=== PATIENT | female | born 1960 | race Caucasian/White ===

== ENCOUNTER 2021-05-31 08:44 | Day surgery (SDC) | payer BC, OTHER ==
[~2021-05-31] VITALS: Ht 160 cm; Wt 78.8 kg
[~2021-05-31 08:44] MED LIST: CALC400T6 PO; CITA20TA6 PO; DIAZ5TAB PO; DULO60CA56 PO; ESTROVEN ENER400 MCG PO; HYDR-2214 PO; HYDR-3248 PO; HYDR473S47 PO; LEVO112T41 PO; NAPR-685 PO; OXYC1TAB14 PO; OXYC5TAB98 PO; P EP PO; POTA1SOL4 PO; TRAZ150T62 PO; TRIA1CAP3 PO; [UNRECOGNIZED DRUG - OTHER] PO
[2021-05-31 09:50] VITALS: BP 101/67
[2021-05-31 10:01] LABS: BASOPHILS % (AUTO) 1 % (0-1); EOSINOPHILS % (AUTO) 3 % (1-7); LYMPHOCYTES % (AUTO) 41 % (22-44); MEAN CORPUSCULAR HEMOGLOBIN 32.2 pg (27.0-34.8); MEAN CORPUSCULAR HGB CONC 33.9 g/dL (32.4-35.8); MEAN PLATELET VOLUME 7.9 fL (7.4-10.4); MONOCYTES % (AUTO) 6 % (2-9); NEUTROPHILS % (AUTO) 49 % (42-75); PLATELET COUNT 232 x10^3/uL (130-400); RED BLOOD COUNT 4.27 x10^6/uL (3.82-5.3); RED CELL DISTRIBUTION WIDTH 13.3 % (9.6-15.2)
[2021-05-31 10:03] VITALS: BP 101/67
[2021-05-31] MEDS ORDERED: ATEN50TA41 PO (10:13)
[2021-05-31] MEDS ORDERED: LEVO88TA4 PO (10:13)
[2021-05-31] MEDS ORDERED: ESTR2TAB PO (10:13)
[2021-05-31] MEDS ORDERED: TRAZ50TA66 PO (10:13)
[2021-05-31] MEDS ORDERED: CHLORHEXIDINE 15 ML UDC ONE (10:27)
[2021-05-31] MEDS ORDERED: LACTATED RINGERS 1,000 ML IV SCH (10:30)
[2021-05-31] MEDS ORDERED: CHLORHEXIDINE 15 ML UDC PO ONE (10:30)
[2021-05-31] MEDS ORDERED: VANCOMYCIN 500 MG ONE (10:43)
[2021-05-31] MEDS ORDERED: LIDOCAINE/PF 1%-EPI 1:200K, 30 ML ONE (10:43)
[2021-05-31] MEDS ORDERED: GENTAMICIN 80 MG/2 ML ONE (10:43)
[2021-05-31] MEDS ORDERED: FENTANYL PF 100 MCG/2ML ONE ×2 (10:49→12:34)
[2021-05-31] MEDS ORDERED: MIDAZOLAM 1 MG/ML, 2ML ONE (10:49)
[2021-05-31] MEDS ORDERED: CEFAZOLIN 1,000 MG ONE (11:37)
[2021-05-31] MEDS ORDERED: ONDANSETRON 2MG/ML, 2ML ONE (11:37)
[2021-05-31] MEDS ORDERED: DEXAMETHASONE 4 MG/ML, 1ML ONE (11:37)
[2021-05-31] MEDS ORDERED: PROPOFOL 10 MG/ML, 20ML ONE (11:37)
[2021-05-31] MEDS ORDERED: ESTROGENS CONJUGATED VAG CRM 0.625MG/1G, 30GM ONE (12:04)
[2021-05-31] MEDS ORDERED: hydrALAzine 20 MG/ML, 1ML IV PRN (12:30)
[2021-05-31] MEDS ORDERED: HYDROmorphone 1 MG/ML, 1ML INJ IVPush PRN (12:30)
[2021-05-31] MEDS ORDERED: MEPERIDINE/PF 25MG/0.5ML IVPush PRN (12:30)
[2021-05-31] MEDS ORDERED: HALOPERIDOL 5 MG/ML IV PRN (12:30)
[2021-05-31] MEDS ORDERED: LORazepam 2 MG/ML, 1ML IVPush PRN (12:30)
[2021-05-31] MEDS ORDERED: ACETAMINOPHEN 325 MG TABLET PO PRN (12:30)
[2021-05-31] MEDS ORDERED: OXYcodone 5 MG/5 ML ORAL.SOL UDC PO PRN (12:30)
[2021-05-31] MEDS ORDERED: LABETALOL 5MG/ML, 20ML IV PRN (12:30)
[2021-05-31] MEDS ORDERED: PROMETHAZINE 25 MG/ML, 1ML IVPush PRN (12:30)
[2021-05-31] MEDS ORDERED: METHOCARBAMOL 1,000 MG in DEXTROSE 5% 100 ML IV PRN (12:30)
[2021-05-31] MEDS ORDERED: METOPROLOL 1 MG/ML, 5ML IV PRN (12:30)
[2021-05-31] MEDS ORDERED: PROMETHAZINE 25 MG SUPP PR PRN (12:30)
[2021-05-31] MEDS ORDERED: ONDANSETRON 2MG/ML, 2ML IVPush PRN (12:30)
[2021-05-31] MEDS: FENTANYL PF 100 MCG/2ML IV PRN ×3 (12:37→13:13)
[2021-05-31] MEDS ORDERED: OXYcodone 5 MG/5 ML ORAL.SOL UDC ONE (12:47)
[2021-05-31] MEDS ORDERED: ACETAMINOPHEN 650 MG/20.3 ML UDC PO PRN (13:00)
[2021-05-31] MEDS ORDERED: MEPERIDINE/PF 25MG/ML,1ML ONE (13:20)
[2021-05-31] MEDS ORDERED: KETOROLAC 30 MG/1 ML ONE (13:26)
[2021-05-31] MEDS ORDERED: KETOROLAC 30 MG/1 ML IVPush SCH (13:30)
== END 2021-05-31 15:40 | disposition home or self-care (01) ==
LOC: OUT 08:44
PROVIDERS: ATTEND Obstetrics & Gynecology Gynecology
DX: T83.711A Erosion of implanted vaginal mesh to surrounding organ or tissue, initial encounter (principal); I10 Essential (primary) hypertension; F32.9 Major depressive disorder, single episode, unspecified; M81.0 Age-related osteoporosis without current pathological fracture; E89.0 Postprocedural hypothyroidism; Z79.890 Hormone replacement therapy; Z79.899 Other long term (current) drug therapy; Z88.0 Allergy status to penicillin; Y83.8 Other surgical procedures as the cause of abnormal reaction of the patient, or of later complication, without mention of misadventure at the time of the procedure
CPT/HCPCS: 36415; 57287; 85025; 93005; J0690; J1100; J1580; J1885; J2175; J2250; J2405; J2704; J3010; J3370